=== PATIENT | female | born 1975 | race Caucasian/White ===

== ENCOUNTER 2016-12-11 20:33 | Emergency (ER) | payer OTHER ==
[2016-12-11 20:51] VITALS: O2SAT 96
[2016-12-11] MEDS ORDERED: TDAP ADULT 0.5 ML INJ (BOOSTRIX) IM ONE (21:33)
--- NOTE | 2016-12-11 22:45 | EDPHY ---
H & P Time Seen by Provider: 12/11/16 20:54 HPI/ROS: CHIEF COMPLAINT: Left hand laceration HISTORY OF PRESENT ILLNESS: 41-year-old [id number] female presents with a laceration to her left hand from a kitchen knife. Tetanus is not up-to- date. She denies numbness or tingling to this hand, she is right-hand- dominant. She has no other complaints. Smoking Status: Never smoked Physical Exam: GEN: Awake, alert, oriented, no acute distress RESP: nl resp effort MSK: Full range of motion of left hand against resistance, sensation intact to light touch, cap refill less than 2 seconds SKIN: 1.5 cm superficial linear laceration to left hand just lateral to left index finger MCP joint. Constitutional: Initial Vital Signs Temperature (C) 36.9 C 12/11/16 20:48 Heart Rate 72 12/11/16 20:48 Respiratory Rate 18 12/11/16 20:48 Blood Pressure 118/72 12/11/16 20:48 O2 Sat (%) 96 12/11/16 20:48 O2 Delivery Mode Room Air Allergies/Adverse Reactions: No Known Allergies Allergy (Unverified 12/11/16 20:48) Home Medications: Medication Instructions Recorded MULTIVITAMINS 12/11/16 MDM/Departure - MDM Procedures: Procedure: Laceration repair. Verbal consent was obtained from the patient. The 1.5 cm laceration on the left hand was anesthetized using 1% lidocaine with epinephrine. The wound was carefully irrigated by the emergency department body technician/painter. Next, the wound was prepped and draped in sterile fashion and explored to its base with a gloved finger. There were no deep structures involved. No tendon injury was identified. No vascular injury was identified. No foreign bodies were identified. The wound was repaired with 5.0 Prolene, 4 simple interrupted sutures. The wound repair was simple. The procedure was performed by myself. Tetanus and antibiotic status were addressed. Medications Given: Discontinued Medications Diphtheria/Tetanus/Acell Pertussis (Boostrix) 0.5 ml IM .ONCE ONE Stop: 12/11/16 21:34 Last Admin: 12/11/16 21:42 Dose: 0.5 ml - Depart Disposition: Home, Routine, Self-Care Clinical Impression: Laceration of left hand Qualifiers: Encounter type: initial encounter Foreign body presence: without foreign body Qualified Code(s): S61.412A - Laceration without foreign body of left hand, initial encounter Condition: Good Instructions: Laceration (ED) Additional Instructions: Return to the emergency department in 12-14 days for suture removal, return sooner for any signs of infection. Referrals: Kathy Avila MD [Primary Care Provider] - As per Instructions
[2016-12-11 22:57] VITALS: BP 104/59; PULSE 63; RESP 16; TEMP 97.9
== END 2016-12-11 22:56 | disposition home or self-care (01) ==
PROC: 0HQGXZZ Repair Left Hand Skin, External Approach (ICD-10-PCS; principal; 2016-12-11)
DX: S61.412A Laceration without foreign body of left hand, initial encounter (principal); Z23 Encounter for immunization; W26.0XXA Contact with knife, initial encounter